=== PATIENT | male | born 1955 | race Caucasian/White ===

== ENCOUNTER 2024-08-04 09:40 | Outpatient (CLI) | payer MEDICARE, SELFPAY ==
[2024-08-04 09:50] VITALS: BP 157/102; PULSE 85; RESP 20; TEMP 36.6; O2SAT 98
[2024-08-04 10:15] VITALS: O2SAT 97
[2024-08-04 10:20] VITALS: O2SAT 97
[2024-08-04 10:30] VITALS: BP 176/112; PULSE 82
[2024-08-04] MEDS: Bupivacaine 0.5% Pres-Free 10 ML VIAL IJ (10:33)
[2024-08-04] MEDS: methylPREDNISolone ACETATE 40 MG/ML VIAL IJ (10:33)
[2024-08-04] MEDS: Omnipaque 240 MG/ML 50 ML BTL IJ (10:33)
[2024-08-04] MEDS: Nerve Block Tray 1 EACH MC (10:34)
--- NOTE | 2024-08-04 10:58 | PDOC.PAIN ---
Date of service: 08/04/24 Time of Service: 11:06 Pain Managment Procedure Note Procedure Note Procedure Note: COCCYX INJECTION ? Pre-procedure Diagnosis: COCCYDYNIA ? Post-procedure Diagnosis:? The same as above ? Sedation: NONE? Estimated blood loss:? less than 1 cc ? Surgeon:? Rodri Brown MD ? Procedure Detail:? The procedure and potential risks were explained to the patient and informed written consent was obtained. The patient was escorted to the procedure room and placed in the prone position. Pillows were utilized for proper positioning and comfort.? Time out was performed in procedure room with nursing staff confirming the patient's identity, procedure to be performed, allergies, and any blood thinning or anti-platelet medications. The patient's lower back was prepped with chlorhexidine and draped in a sterile fashion. Sterile technique was maintained throughout the procedure.? Sterile gloves were used, a face mask was worn, and new single dose vials of all medications were used with the top being swabbed with alcohol and given time to dry prior to withdrawal of medication.? A fluoroscopic view was obtained, with visualization of the: COCCYX IN LATERAL VIEW ? 1% LIDOCAINE was used to anesthetize the skin. A 25-gauge needle was advanced TO THE POINT OF MAXIMUM TENDERNESS . . Proper placement was verified in LATERAL views under fluoroscopy with 0.25ml Omnipaque 240. At this location, following negative aspiration, 1cc 0.5% bupivacaine and 15 mg depomedrol was injected at 2 sites.? The patient tolerated the procedure well and was transported to the recovery area for observation and discharge instructions. Permanent images saved and recorded. Follow-up:prn COMMENT:? Consider repeat.
--- NOTE | 2024-08-04 18:00 | DI.RAD_ITS ---
Exam(s) XR PAIN CLINIC SACRUM 2V EXAM: XR PAIN CLINIC SACRUM 2V CLINICAL HISTORY: DX: Coccydynia. TECHNIQUE: Fluoroscopy was provided for the referring physician for guidance with performing pain cl inic injection procedure. COMPARISON: No exams were available for comparison FINDINGS: Please see procedure note for details. Fluoro time: 17.3 seconds RADIATION DOSE DELIVERED: Shanar=10.67 mGy
== END 2024-08-04 09:41 | disposition home or self-care (01) ==
LOC: PC 09:40
PROVIDERS: PCP Registered Nurse; Visit Provider Anesthesiology Pain Medicine
DX: M53.3 Sacrococcygeal disorders, not elsewhere classified (principal); M54.50 Low back pain, unspecified
CPT/HCPCS: 00123; 20605; 72220; J0665; J1010; Q9967

== ENCOUNTER 2024-11-22 03:08 | Outpatient (CLI) | payer MEDICARE, SELFPAY ==
--- NOTE | 2024-11-22 | DI.RAD_ITS ---
Exam(s) XR HIP PELVIS ADULT BL EXAM: XR HIP PELVIS ADULT BL CLINICAL HISTORY: HIP PAIN. TECHNIQUE: 2D digital imaging was performed. COMPARISON: No exams were available for comparison FINDINGS: 3 views There is no evidence of pelvic nor hip fracture. There is no hip joint space narrowing. Bone densit y normal. No osseous lesions. There is asymmetric narrowing of the right-side of the L 3-4 disc space. Sacroiliac joints appear un remarkable. IMPRESSION: No acute osseous findings in the pelvis and hips. Asymmetric disc space narrowing on the right side of L3-4 level, incidentally noted. DATA REPOSITORY: RADIATION DOSE DELIVERED:
== END 2024-11-22 03:28 ==
LOC: DI 03:08
PROVIDERS: PCP Registered Nurse; Visit Provider Family Medicine
DX: M51.86 Other intervertebral disc disorders, lumbar region (principal)
CPT/HCPCS: 73521

== ENCOUNTER 2024-12-01 09:26 | Outpatient (CLI) | payer MEDICARE, SELFPAY ==
--- NOTE | 2024-12-01 06:00 | DI.RAD_ITS ---
Exam(s) XR PAIN CLINIC SACRIOILIAC 2V EXAM: XR PAIN CLINIC SACRIOILIAC 2V CLINICAL HISTORY: DX: Sacroiliac Dysfunction. TECHNIQUE: Fluoroscopy was provided for the referring physician for guidance with performing pain cl inic injection procedure. COMPARISON: No exams were available for comparison FINDINGS: Please see procedure note for details. Fluoro time: 22.2 seconds RADIATION DOSE DELIVERED: Ka,r=6.21 mGy
[2024-12-01 09:38] VITALS: BP 145/95; PULSE 83; RESP 20; TEMP 36.4; O2SAT 97
[2024-12-01 10:22] VITALS: O2SAT 98
--- NOTE | 2024-12-01 10:23 | PDOC.PAIN ---
Date of service: 12/01/24 Time of Service: 10:29 Pain Managment Procedure Note Procedure Note Procedure Note: ?Sacroiliac Joint Steroid Injection ? Location: ? Right SI Joint? Pre-procedure Diagnosis: Sacroiliitis, not elsewhere classified - M46.1 ? Post-procedure Diagnosis:? The same as above ? Sedation:? NONE ? Medication: Depo-Medrol 40 mg, bupivacaine 0.5% 1 mL, Omnipaque 0.25 mL per joint ? Estimated blood loss:? less than 2 cc ? Surgeon:? Rodri Brown MD ? COMMENT: THIS WILL BE BOTH DIAGNOSTIC AND THERAPEUTIC ? Procedure Detail:? The procedure and potential risks were explained to the patient and informed written consent was obtained. The patient was escorted to the procedure room and placed in the prone position. Pillows were utilized for proper positioning and comfort. Time out was performed in the procedure room with nursing staff confirming the patient's identity, procedure to be performed, allergies, and any blood thinning or anti-platelet medications. The patient's lumbosacral area was prepped with ChloraPrep and draped in a sterile fashion. Sterile technique was maintained throughout the procedure.? Sterile gloves were used, a face mask was worn, and new single dose vials of all medications were used with the top being swabbed with alcohol and given time to dry prior to withdrawal of medication. Lidocaine 1% was used to anesthetize the skin. With fluoroscopic guidance, a 22-gauge 3.5 spinal needle was advanced into the posteroinferior aspect of the Right SI joint . Confirmation of position of the needle tip was obtained with injection of 0.25cc of Omnipaque 240 contrast which showed appropriate spread .? Following negative aspiration, 40mg of methylprednisolone mixed with 1 mL of bupivacaine 0.5% was injected.? The needle was gently removed. ?The patient tolerated the procedure well and was transported to the recovery area for observation and discharge instructions.? Permanent images saved and recorded. Plan:? Follow up prn. PAIN PRE PROCEDURE 3/10 POST PROCEDURE 0/10 COMMENT: 80 % BETTER AFTER INJECTION. ?We also briefly discussed basivertebral nerve ablation L3, L4, 5 and S1. L3 and 4 the most significant
[2024-12-01] MEDS: Omnipaque 240 MG/ML 50 ML BTL IJ (10:25)
[2024-12-01] MEDS: Bupivacaine 0.5% Pres-Free 10 ML VIAL IJ (10:26)
[2024-12-01] MEDS: Nerve Block Tray 1 EACH MC (10:27)
[2024-12-01] MEDS: methylPREDNISolone ACETATE 80 MG/ML VIAL IJ (10:27)
== END 2024-12-01 09:27 | disposition home or self-care (01) ==
LOC: PC 09:27
PROVIDERS: PCP Registered Nurse; Visit Provider Anesthesiology Pain Medicine
DX: M54.50 Low back pain, unspecified (principal); M46.1 Sacroiliitis, not elsewhere classified
CPT/HCPCS: 00123; 27096; 72200; J0665; J1010; Q9967

== ENCOUNTER → 2025-01-20 08:55 | Outpatient (BNVA) | payer MEDICARE, SELFPAY | PROVIDERS: PCP Registered Nurse; Referring Provider Registered Nurse | DX: M70.62 Trochanteric bursitis, left hip (principal); M70.61 Trochanteric bursitis, right hip; M75.52 Bursitis of left shoulder; M76.891 Other specified enthesopathies of right lower limb, excluding foot; M76.892 Other specified enthesopathies of left lower limb, excluding foot | CPT/HCPCS: 99203 ==

== ENCOUNTER 2025-06-21 13:38 | Outpatient (CLI) | payer MEDICARE, SELFPAY ==
--- NOTE | 2025-06-21 13:27 | DI.RAD_ITS ---
Exam(s) XR SHOULDER LT COMPLETE 2+V EXAM: XR SHOULDER LT COMPLETE 2+V CLINICAL HISTORY: LEFT SHOULDER PAIN. TECHNIQUE: 2D digital imaging was performed of the left shoulder. Two images were obtained. Grashey and axillary views were obtained. COMPARISON: No exams were available for comparison FINDINGS: BONES: No acute fracture is present. No bony destructive lesion is seen. JOINTS: No dislocation present. Degenerative changes are seen at the glenohumeral joint characterized by joint space narrowing and osteophytes. The acromioclavicular joint is well maintained. SOFT TISSUE: Normal. IMPRESSION: Moderate degenerative changes at the glenohumeral joint. DATA REPOSITORY: RADIATION DOSE DELIVERED:
== END 2025-06-21 13:39 | disposition home or self-care (01) ==
LOC: DIORS 13:38
PROVIDERS: PCP Registered Nurse; Referring Provider Family Medicine; Visit Provider Student in an Organized Health Care Education/Training Program
DX: M25.512 Pain in left shoulder (principal); M75.102 Unspecified rotator cuff tear or rupture of left shoulder, not specified as traumatic
CPT/HCPCS: 99213; 73030

== ENCOUNTER 2025-06-22 01:47 | Outpatient (CLI) | payer MEDICARE, SELFPAY ==
--- NOTE | 2025-06-22 12:03 | DI.DEXA_ITS ---
Exam(s) XR DEXA BONE DENSITY W/WO SEGUNDO EXAM: XR DEXA BONE DENSITY W/WO SEGUNDO CLINICAL HISTORY: Long-term use of inhaled steroids, Z79.51; long-term use of medications, TECHNIQUE: COMPARISON: No exams were available for comparison FINDINGS: Lateral Spine Image: Unremarkable. No compression deformities identified. Left hip: Total T-Score: 0.6 Total Z-Score: 1.3 T- and Z-scores: Within normal limits. Lumbar Spine: Total T-Score: 0.0 Total Z-Score: 0.9 T- and Z-scores: Within normal limits. IMPRESSION: No evidence of osteoporosis.
== END 2025-06-22 02:07 ==
LOC: DI 01:47
PROVIDERS: PCP Registered Nurse; Visit Provider Internal Medicine Gastroenterology
DX: Z13.820 Encounter for screening for osteoporosis (principal); Z79.51 Long term (current) use of inhaled steroids; Z79.899 Other long term (current) drug therapy
CPT/HCPCS: 77080

== ENCOUNTER 2025-07-15 00:24 | Outpatient (CLI) | payer MEDICARE, SELFPAY ==
--- NOTE | 2025-07-15 06:00 | DI.MRI_ITS ---
Exam(s) MR UPPER JOINT LT WO EXAM: MR UPPER JOINT LT WO CLINICAL HISTORY: LEFT SHOULDER PAIN,LT ROTATOR CUFF TEAR,M75.102 TECHNIQUE: Multiplanar multisequence MRI of the shoulder was performed. COMPARISON: MR MR SHOULDER LT WO CONTRAST from 07/17/2023 CR XR SHOULDER LT COMPLETE 2+V from 06/21/2025 FINDINGS: MARROW:There is no evidence of fracture, Hill-Sachs deformity, nor ominous osseous lesions. GLENOHUMERAL JOINT: There are moderate degenerative changes in the glenohumeral joint again noted. There is some articular cartilage loss and small osteophyte on the inferior articular surface of the humeral head appears unchanged from June 2023. no degenerative subarticular cysts. ROTATOR CUFF MECHANISM: AC JOINT/ACROMIUM: There are degenerative changes in the AC joint again noted, similar to the prior MRI study of 2 years ago and with undersurface capsule hypertrophy causing some impingement on the musculotendinous junction of the supraspinatus.. There is no evidence of os acromiale. Supraspinatus: Again noted is a previously described full-thickness tear at the foot pad insertional aspect of the supraspinatus tendon, again not associated with retraction of the musculotendinous junction. This is superimposed upon tendinitis signal. There is no significant muscle belly atrophy in the supraspinatus. Infraspinatus: Some insertional tendinitis again noted. No full-thickness tear. No muscle belly atrophy. Teres Minor: Intact. No evidence of tear nor muscle atrophy. Subscapularis/anterior cuff: There has been some increase in tendinitis signal at the insertional aspect but no full-thickness tear. No muscle atrophy. BICEPS TENDON: Exhibits normal position within the intertubercular groove. There is again noted some increased intrasubstance signal within the intra- articular aspect of the biceps tendon, possibly related to magic angle effect but cannot exclude partial tearing. There is a small amount of fluid in the biceps tendon sheath. No loose bodies evident within the sheath.. LABRUM: There is no detachment of the biceps from the anterosuperior labrum. There is some increased intrasubstance signal within the superior labrum posterior to the biceps insertion. There is radial tearing in the posterior labrum noted, more so than previous and there are multiple small associated paralabral cysts at this level. They labral tear continues into the posterior aspect of the inferior labrum. There also appears to be some tearing in the anterior labrum, similar to previous there is, however, no abnormal intraosseous signal in the anteroinferior glenoid IMPRESSION: 1. Findings are relatively similar when compared to the outside MRI scan performed 07/17/2023. 2. There is again noted an area of full-thickness tearing at the foot pad insertional aspect of the supraspinatus tendon not associated with retraction of the myotendinous junction and not associated with significant muscle atrophy. There is some insertional tendinitis signal in the infraspinatus and subscapularis but no high-grade tears of these structures. 3. There is multilevel labral tearing again noted. There is also conglomeration of small labral cysts associated with the labral tear in the posterior and inferior labrum. 4. Moderate degenerative changes in the glenohumeral joint again noted. No prominent joint effusion and no obvious loose intra-articular bodies evident. 5. AC joint degenerative changes also appear unchanged from the prior study. DATA REPOSITORY:
== END 2025-07-15 00:44 ==
LOC: DI 00:24
PROVIDERS: PCP Registered Nurse; Visit Provider Student in an Organized Health Care Education/Training Program
DX: M75.102 Unspecified rotator cuff tear or rupture of left shoulder, not specified as traumatic (principal)
CPT/HCPCS: 73221

== ENCOUNTER → 2025-07-20 09:29 | Outpatient (BNVA) | payer MEDICARE, SELFPAY | PROVIDERS: PCP Registered Nurse; Referring Provider Registered Nurse; Visit Provider Student in an Organized Health Care Education/Training Program | DX: M75.102 Unspecified rotator cuff tear or rupture of left shoulder, not specified as traumatic (principal); M19.012 Primary osteoarthritis, left shoulder; M75.101 Unspecified rotator cuff tear or rupture of right shoulder, not specified as traumatic; M54.2 Cervicalgia | CPT/HCPCS: 99213 ==

== ENCOUNTER → 2025-08-31 11:20 | Outpatient (BNVA) | payer MEDICARE, SELFPAY | PROVIDERS: PCP Registered Nurse; Referring Provider Registered Nurse; Visit Provider Physical Therapy Assistant | DX: Z12.11 Encounter for screening for malignant neoplasm of colon (principal); Z86.0101 Personal history of adenomatous and serrated colon polyps | CPT/HCPCS: S0285 ==

== ENCOUNTER 2025-09-05 10:10 | Day surgery (SDC) | payer MEDICARE, SELFPAY ==
--- NOTE | 2025-09-05 08:38 | W.ANESPRE ---
General Info Date of Service Date Performed: 09/05/25 Height: 5 ft 7 in Weight: 86.636 kg Body Mass Index (BMI): 29.9 Surgical Procedure: Operation Date: 09/05/25 10:50 Proposed Procedure Side Surgeon eloy Gagnon MD Meds Allergies and Home Medications Allergies Allergy/AdvReac Type Severity Reaction Status Date / Time animal dander Allergy Unknown Unknown Verified 09/05/25 10:24 banana Allergy Unknown throat Verified 09/05/25 10:24 itching Sulfa (Sulfonamide Allergy Unknown Hives Verified 09/05/25 10:24 Antibiotics) tree nut Allergy Unknown throat Verified 09/05/25 10:24 itches Home Medication ?Medication ?Instructions ?Recorded atorvastatin 20 mg tablet 20 mg PO DAILY 09/23/23 fexofenadine 180 mg tablet 180 mg PO DAILY 09/23/23 (Viji Allergy) fluticasone propionate 50 1 spray intranasal DAILY 09/23/23 mcg/actuation nasal spray,suspension losartan 50 mg tablet 100 mg PO DAILY 09/23/23 omeprazole 40 mg capsule,delayed 40 mg PO DAILY 09/23/23 release azelastine 137 mcg (0.1 %) nasal 1 spray intranasal bid 30 days #1 11/07/23 spray ea cholecalciferol (vitamin D3) PO 11/07/23 glucos sul [id number] 1 cap PO DAILY 11/07/23 epinephrine 0.3 mg/0.3 mL 0.3 mg (0.3 mL) IM Q5-15M PRN 11/28/23 injection, auto-injector (EpiPen hypersensitivity reaction #2 ea 2-Bhupinder) celecoxib 100 mg capsule (Celebrex) 100 mg PO BID PRN 07/05/24 aspirin 81 mg capsule 81 mg PO DAILY 07/26/24 tadalafil 10 mg tablet (Cialis) 10 mg PO DAILY PRN 11/16/24 famotidine 40 mg tablet 40 mg PO DAILY 05/04/25 bisacodyl 5 mg tablet,delayed 5 mg PO ONCE #4 tabs 08/31/25 release (Dulcolax (bisacodyl)) polyethylene glycol 3350 17 17 g PO ONCE #238 grams 08/31/25 gram/dose oral powder chlorthalidone 50 mg tablet 50 mg PO DAILY Blook Pressure 09/05/25 Current Visit Medications: Current Medications Generic Name Dose Route Start Last Admin Trade Name Elton PRN Reason Stop Dose Admin Ringer's Solution 1,000 mls @ 80 mls/hr 09/05/25 06:00 IV 10/02/25 23:59 INFUSION TRES IV Miscellaneous Supplies 1 each 09/05/25 06:00 Iv Access IV 10/02/25 23:59 DIRECTED TRES Sodium Chloride 0 ml 09/05/25 06:00 Normal Saline Flush 10 Ml Syr IV 10/02/25 23:59 PRN PRN Sodium Chloride 0 ml 09/05/25 06:00 Normal Saline 10 Ml Vial IJ 10/02/25 23:59 DIRECTED PRN Sterile Water 0 ml 09/05/25 06:00 Water,Injection,Sterile 10 Ml Vial IJ 10/02/25 23:59 DIRECTED PRN PFSH Active Problems Active Problems: Problem Status Onset Code Cervicalgia Acute M54.2 Rotator cuff tear, right Acute M75.101 Arthritis of left shoulder region Acute M19.012 Left rotator cuff tear Acute M75.102 Skin lesion Acute L98.9 Tendonitis involving hip abductors Acute M76.899 Subacromial bursitis of left shoulder joint Acute M75.52 Trochanteric bursitis, right hip Acute M70.61 Trochanteric bursitis of left hip Acute M70.62 Sacroiliac joint dysfunction of right side Acute M53.3 Vertebrogenic low back pain Acute M54.51 Traumatic coccydynia Acute M53.3 Recurrent sinusitis Acute J32.9 Environmental allergies Acute Z91.09 Medical History Medical History Steatosis of liver Shoulder pain Right upper quadrant pain Pulmonary embolism 2019 Peptic ulcer NAFL (nonalcoholic fatty liver) Multiple atypical nevi Lower urinary tract symptoms due to benign prostatic hyperplasia History of kidney stones Hemorrhoids Essential hypertension Dyslipidemia Diverticulosis of colon Disorder of joint of spine Bilateral shoulder pain Arthritis Allergic rhinitis Abdominal pain Seasonal allergies Sinusitis Surgical History Surgical History H/O hernia repair When he was 19 years old History of ERCP Hx of cholecystectomy Tobacco Smoking/Tobacco Use Status: Former Tobacco Use Alcohol Alcohol Intake: former Substance Use Substance use: Never Substance use type: does not use Anesthesia Assessment and Plan Anesthesia History Personal History: No History of Anesthesia Complications Family History: Other Exercise Tolerance Exercise Tolerance: Metabolic Equivalents>4 Pertinent Negatives Pertinent Negatives: No Symptoms of GERD, No Major Cardiovascular Symptoms or Complaints, No Major Pulmonary Symptoms or Complaints and No History of CVA/TIA Cardiac & Pulmonary Exam Cardiac Exam: Normal S1/S2 Heart Sounds Pulmonary Exam: Clear Bilateral Breath Sounds Implantable Cardiac Device Does patient have a Pacemaker or an ICD?: No Airway Exam Known Difficult Airway: No Mallampati Class: 2 Mouth Opening: Normal (> 3cm) Thyromental Distance: Greater than 3 cm Neck Range of Motion: Full ROM Neck Circumference: Normal Teeth Condition: Normal Dentition ASA Classification ASA Score: ASA 2 Emergency Case?: No NPO Status NPO Status: NPO Clears >2 hours, Solids >8 hours Anesthesia Plan Resuscitation Status: Full Code Anesthesia Technique: General Anesthesia Airway Planned: Natural Airway Monitors Used: Standard Monitors Preoperative Comments:: PMH: Peptic ulcer, GERD?, Pulmonary Embolism (2019, aspirin), NAFL, HTN, Cervicalgia PSH: Hernia repair, ERCP, Cholecystectomy
[2025-09-05 10:33] VITALS: BP 155/91; PULSE 98; RESP 16; TEMP 36.2; O2SAT 22
--- NOTE | 2025-09-05 10:51 | W.COLOREPORT ---
Date of service: 09/05/25 Time of Service: 10:51 Colonoscopy Report Procedure Description: PROCEDURES PERFORMED: 1. Colonoscopy PREOPERATIVE DIAGNOSIS: Surveillance colonoscopy, adenomatous polyps POSTOPERATIVE DIAGNOSIS: Sigmoid diverticulosis, grade 1 internal hemorrhoids SURGEON: Alexei Gagnon MD INDICATION FOR PROCEDURE: the patient is a 70-year-old man who has a personal history of polyps but no family history of colon cancer and no symptoms of concern. He says on random and rare occasions his hemorrhoids will flare but the last couple of months they have mostly been normal. He does not have symptoms on any sort of regular basis. Last colonoscopy 5 years ago. FINDINGS: No new polyps. Normal terminal ileum. Mild diverticular disease in the sigmoid colon only. Grade 1 internal hemorrhoids at all 3 columns. SURVEILLANCE interval/FOLLOW-UP: 7 years since no new polyps found this time SPECIMENS: None EBL: Minimal COMPLICATIONS: None QUALITY of prep: Excellent Procedure in detail: The patient gave written consent and was in agreement with the indications, the potential risks as well as the benefits of the procedure. They were taken to the endoscopy suite and laid in the left lateral decubitus position. A timeout was performed and anesthesia was administered which was tolerated well. I started the procedure. Digital rectal and visual examination was performed and grossly within normal limits. A well-lubricated flexible colonoscope was then introduced and passed without any notable difficulty all the way to the cecum identified by the ileocecal valve and the appendiceal orifice. The terminal ileum was intubated and looked normal. The scope was then slowly withdrawn with the above-noted findings. The patient tolerated the procedure well and was taken to the PACU in hemodynamically stable condition.
--- NOTE | 2025-09-05 10:51 | W.PM.DSUDISC ---
Date of service: 09/05/25 Discharge Plan Disposition Patient Disposition: Home Condition: Good Discharge Details Attending Provider: Will Gagnon Primary Care Provider: Anthony Love Home Meds and New Rx's Prescriptions: No Action bisacodyl [Dulcolax (bisacodyl)] 5 mg tablet,delayed release (DR/EC) 5 mg PO ONCE Qty: 4 0RF Rx Instructions: Take per colonoscopy instructions provided by ordering providers office polyethylene glycol 3350 17 gram/dose powder 17 g PO ONCE Qty: 238 0RF Rx Instructions: Take per colonoscopy instructions provided by ordering providers office glucos sul [id number] [Glucosamine Chondroitin] 1 cap PO DAILY cholecalciferol (vitamin D3) PO azelastine 137 mcg (0.1 %) aerosol,spray 1 spray intranasal bid 30 Days Qty: 1 2RF celecoxib [Celebrex] 100 mg capsule 100 mg PO BID PRN epinephrine [EpiPen 2-Bhupinder] 0.3 mg/0.3 mL auto-injector 0.3 mg IM Q5-15M PRN (Reason: hypersensitivity reaction) Qty: 2 1RF Rx Instructions: do not exceed 3 doses per episode fluticasone propionate 50 mcg/actuation spray,suspension 1 spray intranasal DAILY Rx Instructions: administer into each nostril fexofenadine [Viji Allergy] 180 mg tablet 180 mg PO DAILY omeprazole 40 mg capsule,delayed release(DR/EC) 40 mg PO DAILY atorvastatin 20 mg tablet 20 mg PO DAILY losartan 50 mg tablet 100 mg PO DAILY tadalafil [Cialis] 10 mg tablet 10 mg PO DAILY PRN Rx Instructions: administer approximately 30min before sexual activity; do not use more than 1 dose per 24hrs famotidine 40 mg tablet 40 mg PO DAILY aspirin 81 mg capsule 81 mg PO DAILY chlorthalidone 50 mg tablet 50 mg PO DAILY Discharge Instructions Additional Instructions: FINDINGS: No new polyps. Everything looks healthy overall. Mild hemorrhoid disease and mild diverticular disease (diverticulosis) were seen which are extremely common, benign and nothing needs to be done about them. Repeat another colonoscopy in 7 years. Activity:: Activity as Tolerated Diet:: As Tolerated Discharge Orders Discharge Orders: Discharge Order (Routine); Ordered 09/05/25 Ordered By: Will Gagnon
[2025-09-05] MEDS: Lactated Ringers 1,000 ML 80 ML IV (11:01)
[2025-09-05 11:14] VITALS: BMI 29.9
--- NOTE | 2025-09-05 11:15 | RT.EKG_ITS ---
APPROVED REPORT Exam: Resting ECG Reason for Exam: Possible new BBB Patient Location: O HR:82 bpm ECG Measurements Heart Rate 82 AXIS LA 184 P 46 QRSd 147 QRS 126 QT 423 T 4 QTc 494 Conclusion Sinus rhythm...normal P axis, V-rate 60- 99 Probable left atrial enlargement...P >50mS, <-0.10mV V1 RBBB and LPFB...QRSd >120mS, axis(90,210)
[2025-09-05 11:30] VITALS: BP 117/85; PULSE 94; RESP 16; TEMP 36.5; O2SAT 96
[2025-09-05 11:48] VITALS: BP 119/86; PULSE 63; RESP 16; TEMP 36.6; O2SAT 96
--- NOTE | 2025-09-05 12:30 | W.ANESPOSTOP ---
Postoperative Evaluation Date, Time and Location Date Performed: 09/05/25 Time Performed: 12:30 Patient Location: Day Surgery Unit Vital Signs Most Recent Imported Vital Signs: Most Recent Vital Signs Temp Pulse Resp BP Pulse Ox 36.6 C 63 16 119/86 96 09/05/25 11:48 09/05/25 11:48 09/05/25 11:48 09/05/25 11:48 09/05/25 11:48 Pain Score Most Recent Pain Score: Most Recent Pain Score Pain Level 0 09/05/25 11:48 Assessment Mental Status: Awake (Alert & Oriented to Patient Baseline) Airway and Respiratory Function: Patent airway with normal (patient baseline) respiratory exam Cardiovascular Function: Hemodynamically Stable Hydration Status: Adequately Hydrated Nausea & Vomiting: No Nausea or Vomiting Pain: Pt. Denies Any Pain Peripheral Nerve Block: Patient did not receive a nerve block Postoperative Comments:: New RBBB found, EKG obtained, refered to PCP. Discussed with PENNY Rocha and the office will forward that information to the patients PCP.
== END 2025-09-05 10:11 | disposition home or self-care (01) ==
PROVIDERS: PCP Registered Nurse; Visit Provider Student in an Organized Health Care Education/Training Program
PROC: 0DJD8ZZ Inspection of Lower Intestinal Tract, Via Natural or Artificial Opening Endoscopic (ICD-10-PCS; CPT 45378; principal; 2025-09-05 10:45)
DX: Z12.11 Encounter for screening for malignant neoplasm of colon (principal); Z86.0101 Personal history of adenomatous and serrated colon polyps; K57.30 Diverticulosis of large intestine without perforation or abscess without bleeding; K64.8 Other hemorrhoids; I10 Essential (primary) hypertension
CPT/HCPCS: G0105; 93005; 93010; J2704

== ENCOUNTER → 2025-11-02 11:30 | Outpatient (BNVA) | payer MEDICARE, SELFPAY | PROVIDERS: PCP Registered Nurse; Referring Provider Registered Nurse; Visit Provider Student in an Organized Health Care Education/Training Program | DX: M75.102 Unspecified rotator cuff tear or rupture of left shoulder, not specified as traumatic (principal); M19.012 Primary osteoarthritis, left shoulder; M75.101 Unspecified rotator cuff tear or rupture of right shoulder, not specified as traumatic; M54.2 Cervicalgia | CPT/HCPCS: 99213 ==

== ENCOUNTER → 2025-11-07 01:01 | Outpatient (CLI) | payer MEDICARE, SELFPAY ==
--- NOTE | 2025-11-07 06:15 | DI.CT_ITS ---
Exam(s) CT SINUS WO EXAM: CT SINUS WO CLINICAL HISTORY: recurrent sinusitis, congestion, sinus pressure,allergic rhinitis,j43.9,j30. Evaluate for sinusitis. TECHNIQUE: Imaging Protocol: Axial computed tomography images with coronal and sagittal reformatted images were created and reviewed. COMPARISON: CT CT SINUS WO CONTRAST from 01/16/2024 FINDINGS: AXIAL IMAGES: Frontal sinuses: Normally aerated. Ethmoid air cells: Normally aerated. Maxillary sinuses: There is mild mucosal thickening in the left maxillary sinus. No air-fluid levels are present. Sphenoid sinus: Normally aerated. Ostiomeatal complexes: Patent. Osseous nasal septum: The nasal septum mildly deviates to the left. There is a spur projecting from the nasal septum into the left nasal passageway. Visualized regional soft tissues: No acute findings. Orbits: Unremarkable. Bones: Unremarkable. Mastoid Air Cells: Normally aerated. IMPRESSION: Minimal mucosal thickening left maxillary sinus. The remaining visualized paranasal sinuses are unremarkable. RADIATION DOSE DELIVERED: 109.76mGy.cm Total DLP 109.76mGy.cm Total DLP DATA REPOSITORY: All CT scans at this facility are submitted to the National Radiology Data Registry (NRDR) Dose Index Registry (DIR) with the [employer] (A[employer]). RADIATION OPTIMIZATION: All CT scans at this facility use at least one of these dose optimization techniques: automated exposure control; mA and/or kV adjustment per patient size (includes targeted exams where dose is matched to clinical indication); or iterative reconstruction.
== END ==
LOC: DI 01:01
PROVIDERS: PCP Registered Nurse; Visit Provider Registered Nurse Maternal Newborn
DX: J34.89 Other specified disorders of nose and nasal sinuses (principal); J32.0 Chronic maxillary sinusitis
CPT/HCPCS: 70486